=== PATIENT | male | born 1965 | race Caucasian/White ===

== ENCOUNTER 2018-03-06 01:03 | Emergency (ER) | payer OTHER ==
[2018-03-06 01:11] VITALS: BP 140/89; BMI 25.8
--- NOTE | 2018-03-06 01:31 | DR.GENAD ---
HPI - PCP Primary Care Physician: NFD - Complaint/Symptoms Chief Complaint Doctors Comments: A 52 y/o prisoner presents with c/o hurting in head, neck and knees. He gave a prior hx. of DDD and 3 back surgeries previously. Chief Complaint:: FALL WITH HEAD INJURY - Nurses notes reviewed Nurses Notes Review: Yes - Source History Provided: Patient, EMS - Mode of Arrival Mode of Arrival: EMS - Timing Onset of Chief Complaint: 03/06/18 PMH - PMH Past Medical History: Yes Past Medical History Comment: CHRONIC BACK PAIN Past Surgical History: Yes Surgical History: Ortho Surgery Past Surgical History Comment: MULTIPLE BACK SURGERIES WITH HARDWARE PLACED LEFT SHOULDER REPAIR - Family History History of Family Medical Conditions: No - Social History Does patient currently use any type of tobacco product: Yes Have you used tobacco products in the last 12 months: Yes Type of Tobacco Use: None Does any household member use tobacco: No Alcohol Use: None Do you use any recreational Drugs:: No Lives With: Other Lives Where: [facility] - infectious screening In the last 2 months have you had wt loss of >10#?: NO Have you had fever, night sweats or hemotysis?: No Have you traveled outside the country in the last 6 months?: No Isolation: Standard ROS - Review of Systems Constitutional: No Symptoms Reported Eyes: No Symptoms Reported ENTM: No Symptoms Reported Respiratoy: No Symptoms Reported Cardiovascular: No Symptoms Reported Gastrointestinal/Abdominal: No Symptoms Reported Genitourinary: No Symptoms Reported Neurological: No Symptoms Reported Musculoskeletal: Neck Pain, Knee (both, pain) Integumentary: No Symptoms Reported Hematologic/Lymphatic: No Symptoms Reported Endocrine: No Symptoms Reported Psychiatric: No Symptoms Reported All Other Systems: Reviewed and Negative PE - Vital Signs Vitals: Temperature 98.1 F Pulse Rate 66 Respiratory Rate 18 Blood Pressure 140/89 O2 Sat by Pulse Oximetry 100 - General Limitations: No Limitations, Other (He is wearing a necj collar and is strapped unto a hard board. ) General Appearance: Alert, In No Apparent Distress - Head Head Exam: Normal Inspection - Eyes Eye exam: Normal Appearance, PERRL, EOMI - ENT ENT Exam: Normal Exam, Normal Oropharynx - Neck Neck Exam: Normal Inspection - Chest Chest Inspection: Normal Inspection, Symmetric Chest Wall Rise - Respiratory Respiratory Exam: Normal Lung Sounds Bilat - Cardiovascular Cardiovascular Exam: Regular Rate, Normal Rhythm, Normal Heart Sounds, +S1, +S2 - Abdominal Exam Abdominal Exam: Normal Inspection, Normal Bowel Sounds, Soft - Extremities Extremities Exam: Normal Inspection - Back Back Exam: Normal Inspection - Neurologic Neurological Exam: Alert, Oriented X3 - Psychiatric Psychiatric Exam: Normal Affect, Normal Mood - Skin Skin Exam: Warm, Dry, Intact, Normal Color ROR - XRAY XRAY Interpreted by: Radiologist (CT Scan head: no acute intracranial pathology. CT Scan C-Spine: No evidence for tramatic injury of the c-spine. Postsurgical change in c-spine without evidence of hardware loosening or complication.) - Diagnosis Discharge Problem: Fall, Neck pain, Headache - Discharge Plan Disposition: HOME, SELF-CARE Condition: Stable - Follow ups/Referrals Follow ups/Referrals: NFD,None [Primary Care Provider] - 3 days - Instructions Instructions: General Headache Without Cause, [id number]
--- NOTE | 2018-03-06 02:13 | CT ---
CT brain without contrast Indication: Fall with headache Comparison: None available Technique: Multiple axial images of the brain were obtained from the skull base to the vertex without administra tion of IV contrast. Findings: Dense calcification is noted within the left basal ganglia. No acute intraparenchymal hemorrhage or mass can be identified. No extra-axial fluid collections are seen. No alteration in the attenuation of the brain parenchyma can be identified to suggest acute o r subacute ischemic change. The ventricular system is symmetric and nondilated. The extracranial st ructures are grossly unremarkable. IMPRESSION: 1. No acute intracranial process is identified. Reported By:
--- NOTE | 2018-03-06 02:17 | CT ---
CT cervical spine without contrast Indication: Neck pain post fall Comparison: None available Technique: Multiple axial images of the cervical spine were obtained from the skull base to the thora cic inlet without administration of IV contrast. Sagittal and coronal reformats were performed and r eviewed. Findings: Previous posterior fusion spanning C2-T1 and anterior cervical fusion spanning C3-C7 is noted. Corpec andreea changes are noted spanning sugar C4-C6. There is no evidence acute vertebral body fracture or sp ondylolisthesis. No hardware loosening is visualized. No prevertebral soft tissue swelling. Visualize d lungs are clear. No soft tissue swelling within the neck. IMPRESSION: 1. No evidence for traumatic injury of the cervical spine. 2. Postsurgical change in cervical spine without evidence of hardware loosening or complication. Reported By:
[2018-03-06] MEDS ORDERED: FIORICET TAB PO ONE ×2 (02:46→02:49)
== END 2018-03-06 03:05 | disposition home or self-care (01) ==
LOC: ER 01:03
DX: R51 Headache (principal); M54.2 Cervicalgia; M25.562 Pain in left knee; M25.561 Pain in right knee; M51.36 Other intervertebral disc degeneration, lumbar region
CPT/HCPCS: 70450; 72125; 99282